=== PATIENT | female | born 1965 | race Two or more races ===

== ENCOUNTER → 2024-12-26 | Outpatient (CLI) | payer MEDICAID, SELFPAY ==
--- NOTE | 2024-12-26 08:45 | XR_ITS ---
Examination: Screening digital mammography, bilateral Computer aided detection 3-D breast Tomosynthesis, bilateral Date and time of exam: December 26, 2024 0843 hours Compared to mammograms dating to December 27, 2008 Indication: Screening Technique: Nonmagnified MLO, CC views of the breasts to been obtained, reconstructed from 3-D Tomosynthesis images. R2 computer aided detection program utilized for evaluation of suspicious masses and/or abnormal calcifications. 3-D Tomosynthesis images obtained. Findings: The breasts are heterogeneously dense, which may obscure small masses Benign calcifications No interval suspicious masses Impression: BI-RADS category II: Benign Findings. Recommend 1 year follow-up mammogram.
== END | disposition home or self-care (01) ==
LOC: CDIM 08:35
PROVIDERS: PCP Nurse Practitioner; Referring Provider Obstetrics & Gynecology; Visit Provider Obstetrics & Gynecology
DX: Z12.31 Encounter for screening mammogram for malignant neoplasm of breast (principal); R92.323 Mammographic fibroglandular density, bilateral breasts; R92.1 Mammographic calcification found on diagnostic imaging of breast
CPT/HCPCS: 77063; 77067

== ENCOUNTER 2025-01-21 13:37 | Outpatient (AMB) | payer MEDICAID, SELFPAY ==
[2025-01-21 13:49] VITALS: BP 125/83; PULSE 77; RESP 18; TEMP 36.4; O2SAT 98; BMI 41.0
--- NOTE | 2025-01-21 13:52 | GSCOFFNT_ITS ---
Vital Signs - [facility] 01/21/25 13:49 01/21/25 13:53 Height 1.42 m Height Method Stated Weight 82.724 kg Weight Measurement Method Standing Scale BMI 41.0 BP 125/83 125/83 Blood Pressure Source Automatic Cuff Blood Pressure Location Right Upper Arm Position Sitting Respiration 18 18 Pulse 77 77 Pulse Source Monitor Temp 97.5 F 97.5 F Temp Source Temporal Artery Scan Pulse Oximetry (%) 98 98 Oxygen Delivery Method Room Air Med/Allergies Allergies & Medications Allergies Penicillins Allergy (Unknown, Verified 01/21/25 13:50) PENCILLIN Allergy (Uncoded 01/21/25 13:50) Medication Reconciliation gemfibrozil 600 mg tablet 600 mg PO QDAY 10/27/23 [History Confirmed 01/21/25] atorvastatin 20 mg tablet 20 mg PO QDAY 06/12/24 [History Confirmed 01/21/25] furosemide 20 mg tablet 20 mg PO QDAY 06/12/24 [History Confirmed 01/21/25] simvastatin 20 mg tablet 20 mg PO QDAY 06/12/24 [History Confirmed 01/21/25] MA Intake Visit Data Collection New Patient or Established: Established Patient (seen at [facility] within 3 years) Reason for Visit:: REF FOR UMBILICAL HERNIA Pain Present Currently: No Pain scale:: 0 Pain Scale Used: Payne-Contreras/Numerical Procurement Inspector Required: Yes PCP or OBGYN visit in last 3 months: Yes Hx Now: No Do You Feel Safe at Home: Yes Authorities Contacted: N/A Smoking Status Smoking Status: Never smoker Immunization / Flu Flu Vaccine in the Last 12 Months: No Flu Vaccine Exclusion Criteria: No Exclusion Criteria Past Medical History Past Medical History NEUROLOGIC: Negative Neurological Disorders or Seizures CARDIAC: Positive Cardiac Disorders, Hypercholesterolemia and Hypertension; Negative Congestive Heart Failure RESPIRATORY: Negative Chronic Obstructive Pulmonary Disease (COPD) GASTROINTESTINAL: Positive Gastrointestinal Disorders and Ulcer GENITOURINARY: Negative Genitourinary Disorders or Renal Disease REPRODUCTIVE: Positive Previous Pregnancies MUSCULOSKELETAL: Negative Musculoskeletal Disorders ENDOCRINE: Positive Endocrine Disorders and Hypothyroidism; Negative Diabetes Mellitus Type 1 or Diabetes Mellitus Type 2 PSYCHO/SOCIAL: Positive Anxiety OTHER HISTORY: Negative Hospitalization, Down Syndrome, Falls, Blood Transfusions, Blood Transfusion Reaction, Anesthesia Reactions or Cancer Surgical History SURGICAL: Positive Section Social History SMOKING STATUS: Smoking status: Never smoker SECOND HAND EXPOSURE: second hand exposure: No SUBSTANCE USE: Substance use type: does not use ALCOHOL: Alcohol Intake: Never HOUSING: Housing: House Travel Risk Travel Hx Recent Travel: No HPI HPI Narrative Spoke to pt with in-person optical engineering manager 59F referred for umbilical hernia. Pt states she has noticed it for the past 10 years or so, and it has somewhat increased in size during that time. Pt states it is associated with some discomfort but no yasir pain, and she has never had an episode of incarceration. She works in the [employer] with [employer] so she does worry that the heavy lifting and repetitive motions will worsen it. PMH: HLD PSHx: Cholecystectomy, Csections Meds: No antiplt or anticoagulation Allergies: PCN causes anaphylaxis Social hx: Nonsmoker ROS Review of Systems Systems Reviewed: All systems reviewed, normal except as documented Objective/Exam General General Appearance: alert, cooperative and well groomed Resp Respiratory exam: Absent respiratory distress Abdominal Abdominal exam: Present soft and hernia (supraumbilical reducible hernia, no overlying skin changes. At the inferior aspect of the umbilicus there is an area of raised and hyperpigmented skin which pt states is stable since her gallbladder surgery) Results US from 07/28/24 showed upper mid periumbilical abdominal mixed echogenic mass measuring 2.8 x2cm Assessment & Plan Diagnosis / Problem List (1) Umbilical hernia: Status: Acute Assessment & Plan: 59F presenting with longstanding umbilical hernia associated with pain. Pt prefers to wait until work slows down before proceeding with surgery, which she estimates will be in April. I did explain that hernia repair will be more successful if she is able to lose weight for a goal BMI of <35. In the meantime I would like to repeat the US to assess the size as pt feels it has recently increased. All questions were answered and pt is agreeable to this plan Orders: Orders US abdomen limited 1 Week K42.9 - Umbilical hernia without obstruction or gangrene Office Procedures GNS Level of Care Nursing/Assessment Patient Status: Established Patient Nursing Assessment/Reassesment: Medication Reconciliation, Update PMH in EMR and Vital Signs Coordination of Care: Complex Care and Chronic Disease 1-5, Education Complex Pt/Fam, Consent,records obtained, informed consent, Results/Orders obtained and Staff clarify orders Special Needs: Language special needs Established Patient Charge Established Patient Point Assignment: 95 Established Patient Point Charge: EP Level 3 (80-115) Patient Portal Questionaires Social History Living Situation History Housing: House Tobacco History Smoking Status: Never smoker Second Hand Smoke Exposure: No Alcohol History Alcohol Intake: Never Domestic Abuse History Do You Feel Safe at Home: Yes Review of Systems Report any current symptoms Only answer those that you have currently: Past Medical History Past Medical History Have you ever been diagnosed with any of the following: Neurological Problems Seizures: No Cardiology Problems Hypercholesterolemia: Yes Congestive Heart Failure: No Hypertension: Yes Respiratory Problems Chronic Obstructive Pulmonary Disease (COPD): No Stomache/Intestinal Problems Ulcer: Yes Genital/Urinary Problems Renal Disease: No Reproductive Problems Previous Pregnancies: Yes Endocrine Problems Diabetes Mellitus Type 1: No Diabetes Mellitus Type 2: No Hypothyroidism: Yes Psychologic Problems Anxiety: Yes Other Problems Hospitalization: No Down Syndrome: No Falls: No Blood Transfusions: No Blood Transfusion Reaction: No Anesthesia Reactions: No Cancer: No
[2025-01-21 13:53] VITALS: BP 125/83; PULSE 77; RESP 18; TEMP 36.4; O2SAT 98
== END 2025-01-21 14:27 | disposition home or self-care (01) ==
LOC: HODSRG 13:37
PROVIDERS: PCP Nurse Practitioner; Referring Provider Nurse Practitioner; Supervising Provider Surgery; Visit Provider Surgery
DX: K42.9 Umbilical hernia without obstruction or gangrene (principal)
CPT/HCPCS: 99213; G0463

== ENCOUNTER → 2025-02-22 | Outpatient (CLI) | payer MEDICAID, SELFPAY ==
--- NOTE | 2025-02-22 10:30 | XR_ITS ---
Examination: Abdomen sonogram, Limited Date and time of exam: February 22, 2025 1045 hours INDICATIONS: Palpable lump in the umbilical region 10 years Technique: Real-time blum scale transabdominal sonographic images of the upper abdomen obtained. Findings: Hernia defect in the umbilical region 3.4 cm IMPRESSION: Umbilical hernia defect
== END | disposition home or self-care (01) ==
PROVIDERS: PCP Internal Medicine; Referring Provider Surgery; Visit Provider Surgery
DX: K42.9 Umbilical hernia without obstruction or gangrene (principal)
CPT/HCPCS: 76705

== ENCOUNTER 2025-03-11 10:25 | Outpatient (AMB) | payer MEDICAID, SELFPAY ==
--- NOTE | 2025-03-11 10:37 | GSCOFFNT_ITS ---
Vital Signs - [facility] 03/11/25 10:38 Height 1.42 m Height Method Stated Weight 81.732 kg Weight Measurement Method Standing Scale BMI 40.5 BP 135/83 H Blood Pressure Source Automatic Cuff Blood Pressure Location Left Upper Arm Position Sitting Respiration 18 Pulse 73 Pulse Source Monitor Temp 97.7 F Temp Source Temporal Artery Scan Pulse Oximetry (%) 95 Oxygen Delivery Method Room Air Med/Allergies Allergies & Medications Allergies Penicillins Allergy (Unknown, Verified 03/11/25 10:39) PENCILLIN Allergy (Uncoded 03/11/25 10:39) Medication Reconciliation gemfibrozil 600 mg tablet 600 mg PO QDAY 10/27/23 [History Confirmed 03/11/25] atorvastatin 20 mg tablet 20 mg PO QDAY 06/12/24 [History Confirmed 03/11/25] furosemide 20 mg tablet 20 mg PO QDAY 06/12/24 [History Confirmed 03/11/25] simvastatin 20 mg tablet 20 mg PO QDAY 06/12/24 [History Confirmed 03/11/25] MA Intake Visit Data Collection New Patient or Established: Established Patient (seen at [facility] within 3 years) Seen by Clinical Staff ONLY (RN/MA): No Reason for Visit:: F/U HERNIA Pain Present Currently: No Leather Piece Inspector Required: Yes PCP or OBGYN visit in last 3 months: Yes Hx Now: No Do You Feel Safe at Home: Yes Authorities Contacted: N/A Smoking Status Smoking Status: Never smoker Immunization / Flu Flu Vaccine in the Last 12 Months: No Flu Vaccine Exclusion Criteria: No Exclusion Criteria Past Medical History Past Medical History NEUROLOGIC: Negative Neurological Disorders or Seizures CARDIAC: Positive Cardiac Disorders, Hypercholesterolemia and Hypertension; Negative Congestive Heart Failure RESPIRATORY: Negative Chronic Obstructive Pulmonary Disease (COPD) GASTROINTESTINAL: Positive Gastrointestinal Disorders and Ulcer GENITOURINARY: Negative Genitourinary Disorders or Renal Disease REPRODUCTIVE: Positive Previous Pregnancies ENDOCRINE: Positive Endocrine Disorders and Hypothyroidism; Negative Diabetes Mellitus Type 1 or Diabetes Mellitus Type 2 PSYCHO/SOCIAL: Positive Anxiety OTHER HISTORY: Negative Hospitalization, Down Syndrome, Falls, Blood Transfusions, Blood Transfusion Reaction, Anesthesia Reactions or Cancer Surgical History SURGICAL: Positive Section Social History SMOKING STATUS: Smoking status: Never smoker SECOND HAND EXPOSURE: second hand exposure: No ALCOHOL: Alcohol Intake: Never HOUSING: Housing: House HPI HPI Narrative Spoke to pt with in-person elevator supervisor 59F here for follow up of umbilical hernia after undergoing US. Pt states she has been having more pain at the site lately, because her work is busy right now and it requires rapid movements that cause umbilical pain radiating to the right lower abdomen. Pt reports she is still eating well with no nausea/vomiting, has no other complaints ROS Review of Systems Systems Reviewed: All systems reviewed, normal except as documented Objective/Exam General General Appearance: alert, cooperative and well groomed Resp Respiratory exam: Absent respiratory distress Abdominal Abdominal exam: Present soft, hernia (reducible umbilical hernia, mild tender ness to palpation) and scar (supraumbilical scar is well-healed, inferior to the umbilicus there is a keloid which pt states is chronic) Results US reviewed Assessment & Plan Diagnosis / Problem List (1) Umbilical hernia: Status: Acute Assessment & Plan: 59F here for follow up of umbilical hernia after undergoing US. I explained risks of surgery including infection, hernia persistence/recurrence and pt would like to proceed but needs to wait until her work winds down which she expect to be in March-April. Pt will reach out when she is ready to discuss in more detail and schedule surgery Office Procedures GNS Level of Care Nursing/Assessment Patient Status: Established Patient Nursing Assessment/Reassesment: Medication Reconciliation, Update PMH in EMR and Vital Signs Coordination of Care: Complex Care and Chronic Disease 1-5, Consent,records obtained, informed consent, Education Simp Pt/Fam, Results/Orders obtained and Staff clarify orders Special Needs: Language special needs Established Patient Charge Established Patient Point Assignment: 90 Established Patient Point Charge: EP Level 3 (80-115) Patient Portal Questionaires Social History Living Situation History Housing: House Tobacco History Smoking Status: Never smoker Second Hand Smoke Exposure: No Alcohol History Alcohol Intake: Never Domestic Abuse History Do You Feel Safe at Home: Yes Review of Systems Report any current symptoms Only answer those that you have currently: Past Medical History Past Medical History Have you ever been diagnosed with any of the following: Neurological Problems Seizures: No Cardiology Problems Hypercholesterolemia: Yes Congestive Heart Failure: No Hypertension: Yes Respiratory Problems Chronic Obstructive Pulmonary Disease (COPD): No Stomache/Intestinal Problems Ulcer: Yes Genital/Urinary Problems Renal Disease: No Reproductive Problems Previous Pregnancies: Yes Endocrine Problems Diabetes Mellitus Type 1: No Diabetes Mellitus Type 2: No Hypothyroidism: Yes Psychologic Problems Anxiety: Yes Other Problems Hospitalization: No Down Syndrome: No Falls: No Blood Transfusions: No Blood Transfusion Reaction: No Anesthesia Reactions: No Cancer: No
[2025-03-11 10:38] VITALS: BP 135/83; PULSE 73; RESP 18; TEMP 36.5; O2SAT 95; BMI 40.5
== END 2025-03-11 11:09 | disposition home or self-care (01) ==
LOC: HODSRG 10:25
PROVIDERS: PCP Internal Medicine; Referring Provider Internal Medicine; Supervising Provider Surgery; Visit Provider Surgery
DX: K42.9 Umbilical hernia without obstruction or gangrene (principal); I10 Essential (primary) hypertension; E78.00 Pure hypercholesterolemia, unspecified; E03.9 Hypothyroidism, unspecified; F41.9 Anxiety disorder, unspecified
CPT/HCPCS: 99213; G0463

== ENCOUNTER 2025-05-16 09:51 | Outpatient (AMB) | payer MEDICAID, SELFPAY ==
[2025-05-16 10:02] VITALS: BP 145/125; PULSE 87; RESP 18; TEMP 36.5; O2SAT 96; BMI 39.2
--- NOTE | 2025-05-16 10:02 | GSCOFFNT_ITS ---
Vital Signs - [facility] 05/16/25 10:02 Height 1.42 m Height Method Stated Weight 79.038 kg Weight Measurement Method Standing Scale BMI 39.2 BP 145/125 H Blood Pressure Source Automatic Cuff Blood Pressure Location Right Upper Arm Position Sitting Respiration 18 Pulse 87 Pulse Source Monitor Temp 97.7 F Temp Source Temporal Artery Scan Pulse Oximetry (%) 96 Oxygen Delivery Method Room Air Med/Allergies Allergies & Medications Allergies Penicillins Allergy (Unknown, Verified 05/16/25 10:03) PENCILLIN Allergy (Uncoded 05/16/25 10:03) Medication Reconciliation simvastatin 20 mg tablet 20 mg PO QDAY 06/12/24 [History Confirmed 05/16/25] ergocalciferol (vitamin D2) 1,250 mcg (50,000 unit) capsule 1,250 mcg PO QWEEK 05/16/25 [History Confirmed 05/16/25] ibuprofen 800 mg tablet 800 mg PO Q6H 05/16/25 [History Confirmed 05/16/25] metoprolol succinate 50 mg tablet,extended release 24 hr 50 mg PO QDAY 05/16/25 [History Confirmed 05/16/25] omeprazole 20 mg capsule,delayed release 20 mg PO QDAY 05/16/25 [History Confirmed 05/16/25] MA Intake Visit Data Collection New Patient or Established: Established Patient (seen at [facility] within 3 years) Reason for Visit:: PRE-OP HERNIA SX Pain Present Currently: No Pain scale:: 0 Pain Scale Used: Payne-Contreras/Numerical Rotary Lithographic Press Operator Required: Yes PCP or OBGYN visit in last 3 months: Yes Hx Now: No Do You Feel Safe at Home: Yes Authorities Contacted: N/A Smoking Status Smoking Status: Never smoker Immunization / Flu Flu Vaccine in the Last 12 Months: Yes Flu Vaccine Exclusion Criteria: No Exclusion Criteria Past Medical History Past Medical History NEUROLOGIC: Negative Neurological Disorders or Seizures CARDIAC: Positive Cardiac Disorders, Hypercholesterolemia and Hypertension; Negative Congestive Heart Failure RESPIRATORY: Negative Chronic Obstructive Pulmonary Disease (COPD) GASTROINTESTINAL: Positive Gastrointestinal Disorders and Ulcer GENITOURINARY: Negative Genitourinary Disorders or Renal Disease REPRODUCTIVE: Positive Previous Pregnancies MUSCULOSKELETAL: Negative Musculoskeletal Disorders ENDOCRINE: Positive Endocrine Disorders and Hypothyroidism; Negative Diabetes Mellitus Type 1 or Diabetes Mellitus Type 2 PSYCHO/SOCIAL: Positive Anxiety OTHER HISTORY: Negative Hospitalization, Down Syndrome, Falls, Blood Tr ansfusions, Blood Transfusion Reaction, Anesthesia Reactions or Cancer Surgical History SURGICAL: Positive Section Social History SMOKING STATUS: Smoking status: Never smoker SECOND HAND EXPOSURE: second hand exposure: No SUBSTANCE USE: Substance use type: does not use ALCOHOL: Alcohol Intake: Never HOUSING: Housing: House Travel Risk Travel Hx Recent Travel: No HPI HPI Narrative Spoke to pt with in-person full time staff interpreter 59F here for follow up of umbilical hernia. Pt states she had an episode of severe dysuria yesterday but it has fully resolved and she has an appt with her PCP on Tuesday. She also had her annual physical and was advised her labs were all normal ROS Review of Systems Systems Reviewed: All systems reviewed, normal except as documented Objective/Exam General General Appearance: alert, cooperative and well groomed Resp Respiratory exam: Absent respiratory distress Abdominal Abdominal exam: Present soft and hernia (umbilical hernia with tenderness to palpation, at the inferior aspect there is a keloid scar but superiorly there is a well-healed vertical incision); Absent distention or tenderness Results US reviewed Assessment & Plan Diagnosis / Problem List (1) Umbilical hernia: Status: Acute Assessment & Plan: 59F here for follow up of umbilical hernia. I explained again benefits/risks of surgery including infection and hernia recurrence, as well as the postoperative restrictions of no heavy lifting or strenuous activity for 6 weeks postop. Pt expressed understanding and agrees to proceed Office Procedures GNS Level of Care Nursing/Assessment Patient Status: Established Patient Nursing Assessment/Reassesment: Medication Reconciliation, Update PMH in EMR and Vital Signs Coordination of Care: Complex Care and Chronic Disease 1-5, Education Complex Pt/Fam, Consent,records obtained, informed consent, 1 Ins Authorization, Res ults/Orders obtained and Staff clarify orders Established Patient Charge Established Patient Point Assignment: 110 Established Patient Point Charge: EP Level 3 (80-115) Patient Portal Questionaires Social History Living Situation History Housing: House Tobacco History Smoking Status: Never smoker Second Hand Smoke Exposure: No Alcohol History Alcohol Intake: Never Domestic Abuse History Do You Feel Safe at Home: Yes Review of Systems Report any current symptoms Only answer those that you have currently: Past Medical History Past Medical History Have you ever been diagnosed with any of the following: Neurological Problems Seizures: No Cardiology Problems Hypercholesterolemia: Yes Congestive Heart Failure: No Hypertension: Yes Respiratory Problems Chronic Obstructive Pulmonary Disease (COPD): No Stomache/Intestinal Problems Ulcer: Yes Genital/Urinary Problems Renal Disease: No Reproductive Problems Previous Pregnancies: Yes Endocrine Problems Diabetes Mellitus Type 1: No Diabetes Mellitus Type 2: No Hypothyroidism: Yes Psychologic Problems Anxiety: Yes Other Problems Hospitalization: No Down Syndrome: No Falls: No Blood Transfusions: No Blood Transfusion Reaction: No Anesthesia Reactions: No Cancer: No
== END 2025-05-16 10:27 | disposition home or self-care (01) ==
LOC: HODSRG 09:51
PROVIDERS: PCP Internal Medicine; Referring Provider Internal Medicine; Supervising Provider Surgery; Visit Provider Surgery
DX: K42.9 Umbilical hernia without obstruction or gangrene (principal); I10 Essential (primary) hypertension; E78.00 Pure hypercholesterolemia, unspecified; E03.9 Hypothyroidism, unspecified
CPT/HCPCS: 99213; G0463

== ENCOUNTER 2025-05-22 05:35 | Day surgery (SDC) | payer MEDICAID, SELFPAY ==
[2025-05-16 11:56] VITALS: BMI 39.4
--- NOTE | 2025-05-16 12:15 | EKG_ITS ---
[facility] Test Date: 2025-05-16 Pat Name: CLAUS GARCIADepartment: Room: - Gender: Female Tinter Photograph: ELO : 1965 Requested By: Brent Samuel Order Number: [id number] Reading MD: Brent Samuel Measurements Intervals Alvin Rate: 77 P: 23 GA: 159 QRS: -6 QRSD: 92 T: 14 QT: 377 QTc: 428 Interpretive Statements SINUS RHYTHM LOW QRS VOLTAGE IN PRECORDIAL LEADS [QRS DEFLECTION < 1.0 mV IN CHEST LEADS] INCOMPLETE RIGHT BUNDLE BRANCH BLOCK [90+ ms QRS DURATION, TERMINAL R IN V1/V2, 40+ ms S IN I/aVL/V4/V5/V6] No previous ECG available for comparison /[id number]/S0/[id number]
[2025-05-16 14:17] LABS: Basophils # (Auto) 0.1 Thou/mm3 (0.0-0.2); Basophils % (Auto) 1 % (0-2.5); Eosinophils # (Auto) 0.6 Thou/mm3 (0.0-0.5); Eosinophils % (Auto) 5 % (0-10); Hematocrit 43.0 % (36.0-46.0); Hemoglobin 14.2 g/dL (12.0-16.0); Immature Granulocytes Auto 0.07 Thou/mm3 (0.00-0.00); Lymphocytes # (Auto) 2.8 Thou/mm3 (1.0-4.8); Lymphocytes % (Auto) 23 % (10-50); Mean Corpuscular HGB Conc 33.0 g/dl (31.0-37.0); Mean Corpuscular Hemoglobin 29.3 pg (25.0-35.0); Mean Corpuscular Volume 89 fL (80-100); Monocytes # (Auto) 0.9 Thou/mm3 (0.0-0.8); Monocytes % (Auto) 7 % (0-12); Neutrophils # (Auto) 8.2 Thou/mm3 (1.8-7.7); Neutrophils % (Auto) 65 % (37-80); Nucleated Red Blood Cell # 0.00 Thou/mm3 (0.00-0.00); Nucleated Red Blood Cell % 0 /100 WBC (0); Platelet Count 301 Thou/mm3 (140-440); RDW Standard Deviation 45.0 fL (36.4-46.3); Red Blood Count 4.85 Miln/mm3 (4.00-5.20); White Blood Count 12.7 Thou/mm3 (3.6-11.0)
[2025-05-16 14:23] LABS: INR 1.0 (0.9-1.3); Partial Thromboplastin Time 29.1 Seconds (22.0-36.0); Prothrombin Time 11.0 Seconds (9.0-12.2)
[2025-05-16 14:35] LABS: Alanine Aminotransferase 17 U/L (10-49); Albumin, Serum 4.9 gm/dL (3.5-5.0); Albumin/Globulin Ratio 1.9 (1.2-2.2); Alkaline Phosphatase 100 U/L (46-116); Anion Gap 12 (7-16); Aspartate Amino Transferase 20 U/L (0-34); BUN/Creatinine Ratio 12 Ratio (12-20); Bilirubin,Total 0.3 mg/dL (0.3-1.2); Blood Urea Nitrogen 11 mg/dL (9-23); Calcium 10.9 mg/dL (8.3-10.6); Calcium (Corrected) 10.9 mg/dL (8.5-10.1); Carbon Dioxide 26.3 mMol/L (20.0-31.0); Chloride 105 mMol/L (98-107); Creatinine (Component) 0.9 mg/dL (0.6-1.3); Estimated Creatinine Clearance 60.0 mL/min (>60); Globulin 2.6 gm/dL (2.3-3.5); Glucose 112 mg/dL (74-106); Osmolality,Calculated 285 (275-295); Potassium 4.9 mMol/L (3.4-5.1); Sodium 143 mMol/L (136-145); Total Protein 7.5 gm/dL (5.7-8.2); eGFR > 60 See Note
--- NOTE | 2025-05-21 14:05 | SUR.PREOP ---
WBC 12.7, Dr Zambrano notified and ok to proceed with surgery.
[2025-05-22] VITALS (10 sets, daily range): BP systolic 125–186; BP diastolic 89–112; PULSE 72–113; RESP 13–20; TEMP 36.2–36.7; O2SAT 92–100; BMI 39.6
--- NOTE | 2025-05-22 07:15 | CHAP ---
Prayed with patient before her procedure.
--- NOTE | 2025-05-22 10:35 | SUR.PHASEI ---
1035: Pt. wakes to name then drifts back to sleep, pt. hypertensive, hydralzine ordered, remaining vitals stable, breathing unlabored, no signs of distress, dressing to ABD CDI, no active bleed noted, report recieved from Ayah REVELES and Taylor DOMINGUEZ.
--- NOTE | 2025-05-22 10:41 | PD.SUROPNT ---
Date of Procedure 05/22/25 Pre Op Diagnosis Umbilical hernia Post Op Diagnosis Same Procedure Diagnostic laparoscopy, umbilical hernia repair with mesh Findings Umbilical hernia approx 3cm Procedure Description After discussion of risks and benefits, pt was brought to the operating room, SCDs were placed and general anesthesia was induced. She received preoperative antibiotics and was prepped and draped in the usual sterile fashion. After timeout the planned incision was infiltrated with 0.5% marcaine. At the inferior aspect of pt's existing umbilical incision she had a keloid which she requested I excise intraoperatively. I explained that the keloid could return which pt understands. I first excised this keloid using a #15 blade. I then began to dissect the subcutaneous tissues bluntly and with electrocautery. Due to pt's body habitus it was difficult to fully appreciate the hernia defect which had been measured at 3.4cm by preoprative ultrasound. In order to better visualize I then opted to insert a 5mm camera at the LUQ approximately two fingerbreadths caudal to the costal margin. I made an incision at this location with a #15 blade and elevated the skin with towel clamps. A veress needle was placed through the incision and proper positioning was confirmed with a drop test. The abdomen was insufflated to 15mmHg at which point the Veress was exchanged for a 5mm camera using a visiport technique. There were no signs of injury from the point of entry. Upon examining the abdominal wall there were adhesions of omentum to the more superior aspect of her existing umbilical incision. I placed a 5mm port in the RLQ under direct vision and used a harmonic scalpel to lyse these adhesions. After that the hernia defect was then visible at the superolateral aspect of her supraumbilical incision (lateral towards her right side). I first reapproximated the fascia using interuppted 0 Ethibond sutures and a Gonzalez Nicky. Then as I had explained to the pt preoperatively that mesh is recommended for hernias >2cm, I opted for a 4x6cm Proceed ventral hernia mesh. Before inserting the mesh I placed a suture at the superior and inferior aspect using 0 Ethibond. I also inserted a 12mm port under direct vision in the LLQ. The mesh was rolled and inserted through the 12mm trocar. I made an incision with a #15 blade a few cm superior to the umbilicus however this was obviously not cranial enough to allow the mesh to lie flat so I then made an incision just caudal to the falciform ligament. Through this incision I used the Gonzalez Nicky to grasp the ethibond suture I had placed in the superior aspect of the mesh. I did the same to the Ethibond suture at the inferior aspect of the mesh using an incision approx 4cm inferior to the umbilicus. After this I tacked the mesh around its perimeter using an Ethicon tacking device and the mesh laid flat. The 12mm port was removed and the fascia was reinforced with an 0 Ethibond suture using a gonzalez nicky. Pneumoperitoneum was released and remaining ports were removed under direct vision. Incisions were irrigated and infiltrated with 0.5% marcaine for a total of 30cc. Incisions were closed with 4-0 monocryl and reinforced with dermabond. Pt was extubated and brought to PACU in stable condition Pathology / specimen Other (Umbilical scar, portion of hernia sac) Estimated Blood Loss 50 Surgeon Erin Zambrano MD Surgical Staff Operation Date: 05/22/25 07:30 Case Staff FORENSIC MATERIALS ENGINEER: Ayah Arzate RN First Assistant: Katarzyna Regan
[2025-05-22] MEDS: hydrALAZINE INJ 20 MG/ML VIAL 10 MG IVP (10:44)
[2025-05-22] MEDS: HYDROmorphone INJ 2 MG/ML VIAL 0.5 MG IVP ×2 (10:49→11:00)
--- NOTE | 2025-05-22 10:53 | ESDS_ITS ---
Planned Discharge Date 05/22/25 DS: Providers Provider Primary care physician: Lorena Adamson MD Attending Provider on Admission: Erin Zambrano MD Attending Provider on DC: Erin Zambrano MD Discharging Provider: Erin Zambrano MD Diagnosis Discharge Diagnosis (1) Umbilical hernia: Status: Acute Problem List Completed Was Problem List Reviewed/Reconciled?: Yes Exam Vital Signs Temp Pulse Resp BP Pulse Ox 97.6 F 92 20 172/112 H 96 05/22/25 06:19 05/22/25 10:44 05/22/25 06:19 05/22/25 10:44 05/22/25 06:19 Constitutional Constitutional: no acute distress Discharge Plan Plan Patient Disposition: HOME (Self Care) Prescriptions/Referrals Prescriptions/Med Rec: New oxycodone-acetaminophen [Percocet] 5-325 mg tablet 1 tab PO Q4H MDD 6 tabs PRN (Reason: pain) Qty: 30 0RF Rx Instructions: Take 1 tablet every 4-6 hours as needed for moderate to severe pain docusate sodium [Colace] 100 mg capsule 100 mg PO QDAY PRN (Reason: constipation) Qty: 30 0RF Rx Instructions: Take 1 tablet as needed for constipation No Action metoprolol succinate 50 mg tablet extended release 24 hr 50 mg PO QDAY omeprazole 20 mg capsule,delayed release(DR/EC) 20 mg PO QDAY ibuprofen 800 mg tablet 800 mg PO Q8H PRN (Reason: pain) simvastatin 20 mg Tablet 20 mg PO QDAY ergocalciferol (vitamin D2) [Vitamin D2] 1,250 mcg (50,000 unit) capsule 1,250 mcg PO QWEEK Referrals: Erin Zambrano MD [Physician] - (You will receive a phone call to confirm a follow-up appointment with me in 2 weeks) Lorena Adamson MD [Primary Care Provider] - Patient/Caregiver Discharge Instructions Other Discharge Activity Instructions:: Your incisions have skin glue on them which will fall off on its own and does not need to be replaced Your stitches will not need to be removed You may resume showering in 2 days, on 05/24 It is okay to get incisions wet, pat them dry after Avoid bathing or swimming for 2 weeks During the surgery we fill your abdomen with air in order to see the structures. Some of this air tends to linger and cause pain that is referred to the shoulde r as well as pain with deep breaths. This will get better with time. Being out of bed and walking will help the air to absorb faster Take ibuprofen as needed between doses of Percocet or instead of Percocet if pain is not severe Percocet can cause constipation. Take Colace as needed. If you feel it does not help or if you need an additional medication you may also take MiraLAX. Please make sure to drink plenty of water Wear the abdominal binder while out of bed and walking. It is not necessary to keep it on while you are sitting or lying down Avoid strenuous activity including lifting objects greater than 10 pounds for 6 weeks If you develop worsening pain, nausea/vomiting, fever or concerns about your incisions please seek care in ER Education Materials: Anesthesia: General Anesthesia, Surgery Anesthesia After, After Laparoscopic Hernia Repair, Preventing Surgical Site Infections, Skin Adhesive Wound Care Instructions, [facility] General Discharge-Puerto Rican Print Language: Puerto Rican Stand Alone Forms: Libby Award Info., Patient Portal Info Letter Discharge Order Discharge Orders: Discharge (Routine); Ordered 05/22/25 Ordered By: Erin Zambrano Results Results: Laboratory Laboratory results: results reviewed Results: Imaging US - abdomen: report reviewed PROCEDURES: Procedure Date 05/22/25 Procedures Diagnostic laparoscopy, umbilical hernia repair with mesh
[2025-05-22] MEDS: ALBUTEROL/IPRATROPIUM (Duoneb) RT SOL 3 ML NEBU INH (11:01)
[2025-05-22] MEDS: METOPROLOL TARTRATE INJ 1 MG/ML AMP 5 ML 2.5 MG IVP (11:10)
--- NOTE | 2025-05-22 11:40 | SUR.PHASEII ---
1140: Pt. AAOx4, vitals stable, breathing unlabored, no complaint of pain or nausea, dermabond sites to ABD CDI, no active bleed noted, pt. tolerated sips of soda well, pt. ambulated to wheelchair with steady gait and no assist, no complications. Gave discharge instructions to the pt. and her ride using a supervisor esters and emulsifiers, both verbalized understanding and had no further questions. Pt. left with all personal belongings.
== END 2025-05-22 11:40 | disposition home or self-care (01) ==
PROVIDERS: Anesthesiology; PCP Family Medicine; Referring Provider Surgery; Visit Provider Surgery
PROC: (CPT 49593; principal; 2025-05-22 07:30)
DX: K42.9 Umbilical hernia without obstruction or gangrene (principal); Z01.810 Encounter for preprocedural cardiovascular examination; L91.0 Hypertrophic scar; I45.10 Unspecified right bundle-branch block
CPT/HCPCS: 49593; 11406; 36415; 80053; 85025; 85610; 85730; 93005; A4217; A4649; A9270; C1781; J0131; J0360; J0690; J1100; J1171; J2405; J2704; J3010; J3490; J1805

== ENCOUNTER 2025-06-03 10:52 | Outpatient (AMB) | payer MEDICAID, SELFPAY ==
[2025-06-03 11:24] VITALS: BP 117/77; PULSE 74; RESP 18; TEMP 36.3; O2SAT 96; BMI 38.7
--- NOTE | 2025-06-03 11:24 | PD.GSCLVISIT ---
Vital Signs - [facility] 06/03/25 11:24 Height 1.42 m Height Method Measured Weight 78.075 kg Weight Measurement Method Standing Scale BMI 38.7 BP 117/77 Blood Pressure Source Automatic Cuff Blood Pressure Location Right Upper Arm Position Sitting Respiration 18 Pulse 74 Pulse Source Monitor Temp 97.4 F Temp Source Temporal Artery Scan Pulse Oximetry (%) 96 Oxygen Delivery Method Room Air Med/Allergies Allergies & Medications Allergies Penicillins Allergy (Unknown, Verified 06/03/25 11:30) Medication Reconciliation simvastatin 20 mg tablet 20 mg PO QDAY 06/12/24 [History Confirmed 06/03/25] ergocalciferol (vitamin D2) 1,250 mcg (50,000 unit) capsule (Vitamin D2) 1,250 mcg PO QWEEK 05/16/25 [History Confirmed 06/03/25] ibuprofen 800 mg tablet 800 mg PO Q8H PRN pain 05/16/25 [History Confirmed 06/03/25] metoprolol succinate 50 mg tablet,extended release 24 hr 50 mg PO QDAY 05/16/25 [History Confirmed 06/03/25] omeprazole 20 mg capsule,delayed release 20 mg PO QDAY 05/16/25 [History Confirmed 06/03/25] docusate sodium 100 mg capsule (Colace) 100 mg PO QDAY PRN constipation #30 caps 05/22/25 [Rx Confirmed 06/03/25] oxycodone-acetaminophen 5 mg-325 mg tablet (Percocet) 1 tab PO Q4H PRN pain #30 tabs 05/22/25 [Rx Confirmed 06/03/25] oxycodone-acetaminophen 5 mg-325 mg tablet (Percocet) 1 tab PO Q4H PRN pain #30 tabs 05/28/25 [Rx Confirmed 06/03/25] oxycodone-acetaminophen 7.5 mg-325 mg tablet (Percocet) 1 tab PO Q6H PRN pain #30 tabs 06/03/25 [Rx] MA Intake Visit Data Collection New Patient or Established: Established Patient (seen at [facility] within 3 years) Seen by Clinical Staff ONLY (RN/MA): No Reason for Visit:: 2 WEEK POST OP HERNIA Pain Present Currently: No Pain Scale Used: Payne-Contreras/Numerical Software Controls Engineer Required: Yes PCP or OBGYN visit in last 3 months: Yes Hx Now: No Do You Feel Safe at Home: Yes Authorities Contacted: N/A Smoking Status Smoking Status: Never smoker Immunization / Flu Flu Vaccine in the Last 12 Months: Yes Flu Vaccine Exclusion Criteria: Already Received Past Medical History Past Medical History NEUROLOGIC: Negative Neurological Disorders or Seizures CARDIAC: Positive Cardiac Disorders, Hypercholesterolemia and Hypertension; Negative Congestive Heart Failure RESPIRATORY: Negative Chronic Obstructive Pulmonary Disease (COPD) GASTROINTESTINAL: Positive Gastrointestinal Disorders, Ulcer and Obesity GENITOURINARY: Negative Genitourinary Disorders or Renal Disease REPRODUCTIVE: Positive Previous Pregnancies ENDOCRINE: Positive Endocrine Disorders and Hypothyroidism; Negative Diabetes Mellitus Type 1 or Diabetes Mellitus Type 2 HEMATOLOGIC: Negative Blood Disorders PSYCHO/SOCIAL: Positive Anxiety OTHER HISTORY: Negative Hospitalization, Autoimmune Disease, Down Syndrome, Shingles, Falls, Blood Transfusions, Blood Transfusion Reaction, Anesthesia Reactions or Cancer Family History FAMILY HISTORY: Positive Family Cardiac Disorders; Negative Family Psychiatric Problems, Family Respiratory Disorders, Family Gastrointestinal Problems, Family Cancer, Family Surgery or Family Anesthesia Reaction Surgical History SURGICAL: Positive Abdominal Surgery, Tubal Ligation and Section Social History SMOKING STATUS: Smoking status: Never smoker SECOND HAND EXPOSURE: second hand exposure: No ALCOHOL: Alcohol Intake: Never HOUSING: Housing: House HPI HPI Narrative Spoke to pt with in-person certified court interpreter 59F who presented with symptomatic umbilical hernia s/p laparoscopic repair with mesh 05/22 here for scheduled follow up. Pt states that she had severe pain and difficulty taking deep breaths at first; she reached out to the office and I recommended she take 2 tabs of percocet which she states was helpful. She is now taking 1.5 tabs every 6 hours and also taking ibuprofen. Pt did have constipation, was unable to go for 6 days but that has since improved. She feels the binder is very helpful and is able to eat without any nausea, denies any fever and is walking regularly with the goal of losing weight ROS Review of Systems Systems Reviewed: All systems reviewed, normal except as documented Objective/Exam General General Appearance: alert, cooperative and well groomed Resp Respiratory exam: Absent respiratory distress Abdominal Abdominal exam: Present soft, distention (mild distention ) and incision (c/d/i, no erythema, no fluctuance or tenderness); Absent tenderness, guarding, rebound or rigidity Results Pathology of hernia sac and scar reviewed Assessment & Plan Diagnosis / Problem List (1) Umbilical hernia: Status: Acute Assessment & Plan: 59F who presented with symptomatic umbilical hernia s/p laparoscopic repair with mesh 05/22 here for scheduled follow up, recovering well overall. I advised pt to take ibuprofen between doses of percocet so that she can hopefully begin weaning the percocet Plan: F/u in 3 weeks Office Procedures GNS Level of Care Nursing/Assessment Patient Status: Established Patient Nursing Assessment/Reassesment: Medication Reconciliation, Update PMH in EMR and Vital Signs Coordination of Care: Complex Care and Chronic Disease 1-5, Consent,records obtained, informed consent, Education Simp Pt/Fam, Results/Orders obtained and Staff clarify orders Established Patient Charge Established Patient Point Assignment: 90 Established Patient Point Charge: EP Level 3 (80-115) Patient Portal Questionaires Social History Living Situation History Housing: House Tobacco History Smoking Status: Never smoker Second Hand Smoke Exposure: No Alcohol History Alcohol Intake: Never Domestic Abuse History Do You Feel Safe at Home: Yes Review of Systems Report any current symptoms Only answer those that you have currently: Past Medical History Past Medical History Have you ever been diagnosed with any of the following: Neurological Problems Seizures: No Cardiology Problems Hypercholesterolemia: Yes Congestive Heart Failure: No Hypertension: Yes Respiratory Problems Chronic Obstructive Pulmonary Disease (COPD): No Stomache/Intestinal Problems Ulcer: Yes Obesity: Yes Genital/Urinary Problems Renal Disease: No Reproductive Problems Previous Pregnancies: Yes Endocrine Problems Diabetes Mellitus Type 1: No Diabetes Mellitus Type 2: No Hypothyroidism: Yes Psychologic Problems Anxiety: Yes Other Problems Hospitalization: No Autoimmune Disease: No Down Syndrome: No Shingles: No Falls: No Blood Transfusions: No Blood Transfusion Reaction: No Anesthesia Reactions: No Cancer: No
== END 2025-06-03 12:25 | disposition home or self-care (01) ==
LOC: HODSRG 10:52
PROVIDERS: PCP Internal Medicine; Referring Provider Internal Medicine; Supervising Provider Surgery; Visit Provider Surgery
DX: Z48.815 Encounter for surgical aftercare following surgery on the digestive system (principal); I10 Essential (primary) hypertension; E78.00 Pure hypercholesterolemia, unspecified; E03.9 Hypothyroidism, unspecified; E66.9 Obesity, unspecified; Z68.38 Body mass index [BMI] 38.0-38.9, adult
CPT/HCPCS: 99213; G0463

== ENCOUNTER 2025-07-01 13:18 | Outpatient (AMB) | payer MEDICAID, SELFPAY ==
--- NOTE | 2025-07-01 13:41 | GSCOFFNT_ITS ---
Vital Signs - [facility] 07/01/25 13:46 Height 1.42 m Height Method Measured Weight 80.371 kg Weight Measurement Method Standing Scale BMI 39.8 BP 142/78 H Blood Pressure Source Automatic Cuff Blood Pressure Location Left Upper Arm Position Sitting Respiration 18 Pulse 91 Pulse Source Monitor Temp 97.5 F Temp Source Temporal Artery Scan Pulse Oximetry (%) 96 Oxygen Delivery Method Room Air Med/Allergies Allergies & Medications Allergies Penicillins Allergy (Unknown, Verified 07/01/25 13:47) Medication Reconciliation simvastatin 20 mg tablet 20 mg PO QDAY 06/12/24 [History Confirmed 07/01/25] ergocalciferol (vitamin D2) 1,250 mcg (50,000 unit) capsule (Vitamin D2) 1,250 mcg PO QWEEK 05/16/25 [History Confirmed 07/01/25] ibuprofen 800 mg tablet 800 mg PO Q8H PRN pain 05/16/25 [History Confirmed 07/01/25] metoprolol succinate 50 mg tablet,extended release 24 hr 50 mg PO QDAY 05/16/25 [History Confirmed 07/01/25] omeprazole 20 mg capsule,delayed release 20 mg PO QDAY 05/16/25 [History Confirmed 07/01/25] docusate sodium 100 mg capsule (Colace) 100 mg PO QDAY PRN constipation #30 caps 05/22/25 [Rx Confirmed 07/01/25] oxycodone-acetaminophen 5 mg-325 mg tablet (Percocet) 1 tab PO Q4H PRN pain #30 tabs 05/22/25 [Rx Confirmed 07/01/25] oxycodone-acetaminophen 5 mg-325 mg tablet (Percocet) 1 tab PO Q4H PRN pain #30 tabs 05/28/25 [Rx Confirmed 07/01/25] oxycodone-acetaminophen 7.5 mg-325 mg tablet (Percocet) 1 tab PO Q6H PRN pain #30 tabs 06/24/25 [Rx Confirmed 07/01/25] gabapentin 300 mg capsule 300 mg PO BID pain #60 caps 07/01/25 [Rx] MA Intake Visit Data Collection New Patient or Established: Established Patient (seen at [facility] [place] within 3 years) Seen by Clinical Staff ONLY (RN/MA): No Reason for Visit:: 3 WEEK F/U Pain Present Currently: Yes Pain Location: Abdomen Pain scale:: 8 Pain Scale Used: Payne-Contreras/Numerical Energy Derivatives Trader Required: Yes PCP or OBGYN visit in last 3 months: Yes Hx Now: No Do You Feel Safe at Home: Yes Authorities Contacted: N/A Smoking Status Smoking Status: Never smoker Immunization / Flu Flu Vaccine in the Last 12 Months: Yes Flu Vaccine Exclusion Criteria: Already Received Past Medical History Past Medical History NEUROLOGIC: Negative Neurological Disorders or Seizures CARDIAC: Positive Cardiac Disorders, Hypercholesterolemia and Hypertension; Negative Congestive Heart Failure RESPIRATORY: Negative Chronic Obstructive Pulmonary Disease (COPD) GASTROINTESTINAL: Positive Gastrointestinal Disorders, Ulcer and Obesity GENITOURINARY: Negative Genitourinary Disorders or Renal Disease REPRODUCTIVE: Positive Previous Pregnancies ENDOCRINE: Positive Endocrine Disorders and Hypothyroidism; Negative Diabetes Mellitus Type 1 or Diabetes Mellitus Type 2 HEMATOLOGIC: Negative Blood Disorders PSYCHO/SOCIAL: Positive Anxiety OTHER HISTORY: Negative Hospitalization, Autoimmune Disease, Down Syndrome, Shingles, Falls, Blood Transfusions, Blood Transfusion Reaction, Anesthesia Reactions or Cancer Family History FAMILY HISTORY: Positive Family Cardiac Disorders; Negative Family Psychiatric Problems, Family Respiratory Disorders, Family Gastrointestinal Problems, Family Cancer, Family Surgery or Family Anesthesia Reaction Surgical History SURGICAL: Positive Abdominal Surgery, Tubal Ligation and Section Social History SMOKING STATUS: Smoking status: Never smoker SECOND HAND EXPOSURE: second hand exposure: No ALCOHOL: Alcohol Intake: Never HOUSING: Housing: House [facility] Narrative HISTORY OF PRESENT ILLNESS I, Erin Zambrano, have obtained verbal consent from the patient, to be recorded during this encounter which may include, but not limited to, medical history, examination, treatment plans, and relevant health information.? Patient was informed that recording will be read and reviewed by myself before inclusion in the medical chart. The patient is here for a follow-up of hernia. She is accompanied by an bindery machine tender. She continues to experience pain on the right side, which she describes as a poking sensation. She reports no incisions or openings in the area. The pain intensifies when she sneezes but not when she coughs. She has been avoiding heavy lifting at work due to this discomfort. 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 She also questions whether her weight could be contributing to the severity of her symptoms. She is not currently taking pain medications. She has been sleeping in a seated position since her surgery due to breathing difficulties during sleep. She has not yet completed a sleep study but plans to discuss this with her primary care physician tomorrow. She recently saw her director china, who noted high pressure in her eyes. She is unsure if this is related to her blood pressure. She is scheduled to see her primary care physician tomorrow to discuss this further. ROS Review of Systems Systems Reviewed: All systems reviewed, normal except as documented Objective/Exam General General Appearance: alert, cooperative and well groomed Resp Respiratory exam: Absent respiratory distress Abdominal Abdominal exam: Present soft and other (area of swelling to the left and superior to the umbilicus, which is mildly tender but not erythematous and no sign of recurrent hernia with cough. Pt points to the R lower abdomen as a sore spot but there is no fluctuance, no induration and no skin changes here); Absent distention or tenderness Assessment & Plan Diagnosis / Problem List (1) Umbilical hernia: Status: Acute Assessment & Plan: The hernia appears to be stable, with no evidence of recurrence. The observed swelling could be attributed to fluid accumulation post-dissection. The possibility of a surgical tack impinging on a nerve was also considered. Gabapentin was prescribed for pain management, to be taken at night initially due to its potential sedative effects. If well-tolerated, the dosage can be increased to more than once daily. A follow-up appointment is scheduled for 6 weeks from now to assess progress and determine readiness to return to work. Office Procedures GNS Level of Care Nursing/Assessment Patient Status: Established Patient Nursing Assessment/Reassesment: Medication Reconciliation, Update PMH in EMR and Vital Signs Coordination of Care: Complex Care and Chronic Disease 1-5, Education Complex Pt/Fam, Consent,records obtained, informed consent, Results/Orders obtained and Staff clarify orders Special Needs: Language special needs Established Patient Charge Established Patient Point Assignment: 95 Established Patient Point Charge: EP Level 3 (80-115) Patient Portal Questionaires Social History Living Situation History Housing: House Tobacco History Smoking Status: Never smoker Second Hand Smoke Exposure: No Alcohol History Alcohol Intake: Never Domestic Abuse History Do You Feel Safe at Home: Yes Review of Systems Report any current symptoms Only answer those that you have currently: Past Medical History Past Medical History Have you ever been diagnosed with any of the following: Neurological Problems Seizures: No Cardiology Problems Hypercholesterolemia: Yes Congestive Heart Failure: No Hypertension: Yes Respiratory Problems Chronic Obstructive Pulmonary Disease (COPD): No Stomache/Intestinal Problems Ulcer: Yes Obesity: Yes Genital/Urinary Problems Renal Disease: No Reproductive Problems Previous Pregnancies: Yes Endocrine Problems Diabetes Mellitus Type 1: No Diabetes Mellitus Type 2: No Hypothyroidism: Yes Psychologic Problems Anxiety: Yes Other Problems Hospitalization: No Autoimmune Disease: No Down Syndrome: No Shingles: No Falls: No Blood Transfusions: No Blood Transfusion Reaction: No Anesthesia Reactions: No Cancer: No
[2025-07-01 13:46] VITALS: BP 142/78; PULSE 91; RESP 18; TEMP 36.4; O2SAT 96; BMI 39.8
== END 2025-07-01 14:26 | disposition home or self-care (01) ==
PROVIDERS: PCP Internal Medicine; Referring Provider Internal Medicine; Supervising Provider Surgery; Visit Provider Surgery
DX: K42.9 Umbilical hernia without obstruction or gangrene (principal); I10 Essential (primary) hypertension; E66.9 Obesity, unspecified; Z68.39 Body mass index [BMI] 39.0-39.9, adult
CPT/HCPCS: 99213; G0463

== ENCOUNTER → 2025-07-24 | Outpatient (CLI) | payer MEDICAID, SELFPAY ==
--- NOTE | 2025-07-24 13:00 | XR_ITS ---
Examination: Retroperitoneal ultrasound, complete Technique: Multiple high resolution grayscale images of the retroperitoneum obtained, including kidneys and bladder. Exam date and time: July 24, 2025, 1324 hours INDICATIONS: Flank pain vaginal pain hematuria beginning 2 days ago FINDINGS: Right kidney 11.5 cm renal cortex 2.4 cm Left kidney 11.3 cm renal cortex 2.2 cm Mild renal scar formation, no renal calculi or hydronephrosis No bladder mass or bladder calculi Bladder prevoid volume 507 cc IMPRESSION: Mild renal scar formation No renal calculi or hydronephrosis
--- NOTE | 2025-07-24 13:30 | XR_ITS ---
Examination: Pelvic ultrasound, transabdominal, complete Technique: Transabdominal ultrasound of the pelvis performed using grayscale imaging Date and time of exam: July 24, 2025, 1318 hours INDICATIONS: Postmenopausal vaginal bleeding beginning 2 days ago. FINDINGS: Uterus 7.8 cm endometrial stripe 0.4 cm Right ovary obscured by bowel gas Left ovary 3.6 cm arterial flow 15 mm follicular cyst IMPRESSION: No uterine mass Endometrial stripe 0.4 cm
== END | disposition home or self-care (01) ==
PROVIDERS: PCP Nurse Practitioner; Referring Provider Obstetrics & Gynecology; Visit Provider Obstetrics & Gynecology
DX: N28.89 Other specified disorders of kidney and ureter (principal)
CPT/HCPCS: 76770; 76856

== ENCOUNTER 2025-08-12 13:28 | Outpatient (AMB) | payer MEDICAID, SELFPAY ==
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
[2025-08-12 13:39] VITALS: BP 141/82; PULSE 96; RESP 20; TEMP 36.3; O2SAT 95; BMI 40.3
== END 2025-08-12 13:54 | disposition home or self-care (01) ==
LOC: HODSRG 13:28
PROVIDERS: PCP Internal Medicine; Referring Provider Internal Medicine; Supervising Provider Surgery; Visit Provider Surgery
DX: Z48.815 Encounter for surgical aftercare following surgery on the digestive system (principal); I10 Essential (primary) hypertension; E66.9 Obesity, unspecified; Z68.41 Body mass index [BMI] 40.0-44.9, adult
CPT/HCPCS: 99213; G0463